=== PATIENT | male | born 1980 | race Caucasian/White ===

== ENCOUNTER 2022-02-12 14:56 | Emergency (ER) | payer OTHER ==
[2022-02-12 15:04] VITALS: BP 150/90
--- NOTE | 2022-02-12 15:28 | XRAY Report ---
PROCEDURE: Hand 3 View RT INDICATIONS: Trauma TECHNIQUE: 3 views of the hand(s) acquired. COMPARISON: None FINDINGS: Bones: Mildly displaced and angulated fracture of the fifth metacarpal. Soft tissues: No suspicious soft tissue calcifications. IMPRESSION: Fifth metacarpal fracture. Reviewed by: Raysa Juarez MD, PhD on 02/12/2022 3:27 PM PDT Approved by: Raysa Juarez MD, PhD on 02/12/2022 3:27 PM PDT Station ID: [id number]
--- NOTE | 2022-02-12 15:41 | ED Physician Documentation ---
PD HPI UPPER EXT INJURY - Stated complaint Stated Complaint: HAND INJ - Chief complaint Chief Complaint: Trauma Ext - History obtained from History obtained from: Patient - Additonal information Additional information: The patient comes to the emergency department chief complaint of right lateral hand pain after falling while running with his dog. Patient states the leash was wrapped around his hand and he tripped and pitched forward. Striking his hand on something. He states that it all happened so fast he is not really sure what he hit his hand on but that he immediately noticed swelling and pain over his Fifth MCP area. No numbness or tingling. No other injuries. Review of Systems Ten Systems: 10 systems reviewed and negative Constitutional: reports: Reviewed and negative Eyes: reports: Reviewed and negative Ears: reports: Reviewed and negative Nose: reports: Reviewed and negative Throat: reports: Reviewed and negative Cardiac: reports: Reviewed and negative Respiratory: reports: Reviewed and negative GI: reports: Reviewed and negative : reports: Reviewed and negative Skin: reports: Reviewed and negative Musculoskeletal: reports: Extremity pain, Extremity swelling Neurologic: reports: Reviewed and negative Psychiatric: reports: Reviewed and negative Endocrine: reports: Reviewed and negative Immunocompromised: reports: Reviewed and negative PD PAST MEDICAL HISTORY - Allergies Allergies/Adverse Reactions: Allergies Allergy/AdvReac Type Severity Reaction Status Date / Time No Known Drug Allergies Allergy Verified 02/12/22 14:59 PD ED PE NORMAL - Vitals Vital signs reviewed: Yes - General General: Alert and oriented X 3, No acute distress, Well developed/nourished - HEENT HEENT: Atraumatic, PERRL, EOMI, Moist mucous membranes - Neck Neck: Supple, no meningeal sign - Cardiac Cardiac: Strong equal pulses - Respiratory Respiratory: No respiratory distress - Derm Derm: Normal color, Warm and dry, No rash - Extremities Extremities: Other (Mild deformity with moderate edema over distal right fifth Metacarpal bone and MCP joint. Intact motor capability small finger. No deformity of the finger itself.) - Neuro Neuro: Alert and oriented X 3 - Psych Psych: Normal mood, Normal affect Results - Vitals Vitals: Vital Signs - 24 hr 02/12/22 14:59 Temperature 36.5 C Heart Rate 52 L Respiratory 16 Rate Blood Pressure 150/90 H O2 Saturation 99 Oxygen O2 Source Room air - Rads (name of study) Right hand x-ray series Radiology: Final report received, EMP read indepedently, See rad report (Distal fifth metacarpal bone fracture with mild angulation.) Procedures - Splint (location) Right upper extremity Splint applied by: Jeremy (Under my direct supervision) Type of splint: Fiberglass, Ulnar gutter Other: Patient tolerated well, No complications, Neurovascular intact PD MEDICAL DECISION MAKING - ED course Complexity details: reviewed results, re-evaluated patient, considered differential, d/w patient ED course: I discussed with the patient that he has a boxer's fracture. He has been splinted here and has been given contact information for both our local orthopedic office and hand specialty clinic in [place] through [facility]. I have advised him that if he cannot get into see the hand specialist within the week that he should at least try to follow-up with Dr. Hernandez. We have discussed the importance of follow-up to determine whether he will need operative management or just casting. Discussed the usual indications for return. Departure - Departure Disposition: 01 Home, Self Care Clinical Impression: Boxer's fracture Qualifiers: Encounter type: initial encounter Fracture type: closed Qualified Code(s): S62.339A - Displaced fracture of neck of unspecified metacarpal bone, initial encounter for closed fracture Condition: Stable Instructions: Fx Boxer, ED Fx Hand Closed Follow-Up: Vivek Jimenez MD [Provider Admit Priv/Credential] - ROMY COTTO [Physician No Access] - Denis Gunderson MD [Physician No Access] - Comments: Your x-ray series shows a break in the bone of your hand that connects with your little finger. You will need to follow-up with orthopedics to determine whether this needs surgical pinning. For now, we have placed you in a splint to help keep the bone from moving days. We have included follow-up options for both our general orthopedist here affiliated with the hospital and a hand specialist in [place]. Please call for the next available appointment which should be within the next week for an acute fracture. You may elevate the hand to help with the swelling, and use ibuprofen and Tylenol if needed for the pain. Discharge Date/Time: 02/12/22 15:50
== END 2022-02-12 15:50 | disposition home or self-care (01) ==
LOC: ED 14:56
DX: S62.336A Displaced fracture of neck of fifth metacarpal bone, right hand, initial encounter for closed fracture (principal); W01.10XA Fall on same level from slipping, tripping and stumbling with subsequent striking against unspecified object, initial encounter; Y93.K1 Activity, walking an animal
CPT/HCPCS: 99283

== ENCOUNTER 2023-01-28 09:21 | Outpatient (CLI) | payer OTHER ==
--- NOTE | 2023-01-31 09:59 | Mammography Report ---
MALE BILATERAL DIGITAL DIAGNOSTIC MAMMOGRAM 3D/2D WITH EXAGGERATED CC CLEAVAGE: 01/28/2023 CLINICAL: Palpable left chest lump. Baseline exam. No prior exams were available for comparison. No significant masses, calcifications, or other findings are seen in either breast. The area of palp able concern localized to the medial aspect of the left chest, adjacent to the sternum and was not in the imaged portions of the left male chest/breast. IMPRESSION: INCOMPLETE: NEEDS ADDITIONAL IMAGING EVALUATION There is no abnormality seen in the left breast to correspond with the area of clinical concern, palp able abnormality, and pain in the posterior depth, however, an ultrasound is recommended for further evaluation and is scheduled to immediately follow this examination. This exam was interpreted at Station ID: [id number]. NOTE: For mammograms, a report in lay terms will be sent to the patient. Approximately 15% of breast malignancies will not be visualized mammographically. In the management of a palpable breast mass, a negative mammogram must not discourage biopsy of a clinically suspicious lesion. Electronically Signed By: Myron Levine M.D. aty/:01/28/2023 14:19:55 ACR BI-RADS Category 0: Incomplete 3340F PARENCHYMAL PATTERN: (F) - The breast(s) demonstrate(s) diffuse fatty replacement. BI-RADS CATEGORY: (0) - 0 Ultrasound [id number] Immediate follow-up LATERALITY: (L)
--- NOTE | 2023-01-31 09:59 | Ultrasound Report ---
LIMITED ULTRASOUND OF LEFT BREAST AND SUPRACLAVICULAR: 01/28/2023 CLINICAL: Palpable left breast lump. Comparison is made to exam dated: 01/28/2023 mammogram - [facility]. Real-time ultrasound of the left breast 9 o'clock, and supraclavicular regions was performed. Blanchard scale images of the real-time examination were reviewed. No significant abnormalities were seen sonographically in the left breast. The area of palpable conc colton localized to the medial aspect of the left chest adjacent to the left side of the sternum. This c orrelated with the sternocostal junction with one of the left ribs. No suspicious mass or fluid colle ction. IMPRESSION: BENIGN Focal area of pain and palpable abnormality correlates with the sternocostal junction of a left rib a nd is benign. There is no sonographic evidence of malignancy. Recommend clinical follow up for persistent or worsening symptoms, or development of any clinically s uspicious findings. Findings and recommendations were conveyed to the patient during today's evaluation. This exam was interpreted at Station ID: [id number]. Electronically Signed By: Myron Levine M.D. aty/:01/28/2023 14:23:25 Ultrasound BI-RADS: 2 Benign BI-RADS CATEGORY: (2) - 2 Unspecified - other recall n/a LATERALITY: (B)
== END 2023-01-28 09:22 | disposition home or self-care (01) ==
LOC: DI 09:21
PROVIDERS: ATTEND Internal Medicine
DX: N63.25 Unspecified lump in the left breast, overlapping quadrants (principal)

== ENCOUNTER 2023-11-08 08:00 | Outpatient (CLI) | payer OTHER | END 2023-11-08 23:59 | disposition home or self-care (01) | LOC: LAB.N 08:00 | PROVIDERS: ATTEND Family Medicine | DX: R19.7 Diarrhea, unspecified (principal) | CPT/HCPCS: 83993; 87045; 87046; 87177; 87209; 87427; 87493 ==